=== PATIENT | male | born 1990 | race African-American/Black ===

== ENCOUNTER 2017-09-05 15:27 | Emergency (ER) | payer OTHER ==
[2017-09-05] MEDS: ACETAMINOPHEN 325 MG TAB PO (20:17)
== END 2017-09-05 20:25 | disposition home or self-care (01) ==
LOC: FTE 15:27
DX: R51 Headache (principal); V43.52XA Car driver injured in collision with other type car in traffic accident, initial encounter
CPT/HCPCS: 70450; 99284-25